=== PATIENT | female | born 1990 | race Caucasian/White ===

== ENCOUNTER 2021-01-05 06:35 | Emergency (ER) | payer MEDICAID ==
[~2021-01-05] VITALS: Ht 167.6 cm; Wt 63.6 kg
[2021-01-05] MEDS ORDERED: LORazepam 2 MG/ML VIAL IVP ONE (07:15)
[2021-01-05 07:19] LABS: EOSINOPHILS % (AUTO) 5.8 % (1.0-6.0); HEMATOCRIT 39.5 % (36-46); HEMOGLOBIN 13.5 g/dL (12.0-16.0); LYMPHOCYTES # (AUTO) 0.9 K/uL (1.0-4.8); LYMPHOCYTES % (AUTO) 31.2 % (22.0-44.0); MEAN CORPUSCULAR HEMOGLOBIN 33.4 pg (26.0-34.0); MEAN CORPUSCULAR HGB CONC 34.2 G/dL (31.0-37.0); MEAN CORPUSCULAR VOLUME 98 fL (80-100); MONOCYTES # (AUTO) 0.2 K/uL (0.1-1.0); MONOCYTES % (AUTO) 7.5 % (2.0-9.0); NEUTROPHILS # (AUTO) 1.6 K/uL (1.8-7.7); NEUTROPHILS % (AUTO) 54.5 % (40.0-70.0); PLATELET COUNT (AUTO) 129 K/uL (150-450); RED BLOOD CELL COUNT(AUTO) 4.04 MIL/uL (4.00-5.20); RED CELL DISTRIBUTION WIDTH 16.4 % (11.5-14.5)
[2021-01-05 07:29] LABS: ANION GAP 10 mmol/L (8-16); CARBON DIOXIDE 29 mmol/L (22-29); CHLORIDE 97 mmol/L (98-107); CREATININE 0.78 mg/dL (0.60-1.30); GLOMERULAR FILTR. RATE CALC > 60 mL/min (>60); GLUCOSE,RANDOM 117 mg/dL (70-110); POTASSIUM 3.9 mmol/L (3.5-5.1); SODIUM SERUM 136 mmol/L (136-145); UREA NITROGEN, BLOOD 27 mg/dL (7-18)
[2021-01-05 07:40] LABS: HCG,QUANTITATIVE < 1 mIU/mL (0-6)
[2021-01-05] MEDS ORDERED: IBUPROFEN 600 MG TABLET PO ONE (09:00)
[2021-01-05 09:10] VITALS: BP 146/100
== END 2021-01-05 09:12 | disposition home or self-care (01) ==
LOC: EMS 06:37
DX: R56.9 Unspecified convulsions (principal); F10.239 Alcohol dependence with withdrawal, unspecified; F41.9 Anxiety disorder, unspecified
CPT/HCPCS: 36415; 70450; 80048; 82962; 84702; 85025; 96374; 99284; J2060